=== PATIENT | female | born 1970 | race Caucasian/White ===

== ENCOUNTER 2017-04-19 08:06 | Emergency (ER) | payer MEDICAID, OTHER ==
[2017-04-19] MEDS: ONDANSETRON 4 MG INJ IV (08:28)
[2017-04-19] MEDS: SOD CHLORIDE 0.9% 1,000 ML IV (08:28)
[2017-04-19] MEDS: morphine 4 MG/ML VIAL IV (08:29)
[2017-04-19 08:35] LABS: ABNORMAL IP MESSAGE 1; HEMOGLOBIN 12.6 g/dl (12.0-16.0); MEAN CORPUSCULAR HEMOGLOBIN 28.6 pg (29.0-33.0); MEAN CORPUSCULAR HGB CONC 34.1 g/dl (32.0-37.0); MEAN CORPUSCULAR VOLUME 83.9 fl (82.0-101.0); MEAN PLATELET VOLUME 11.1 fl (7.4-10.4); PLATELET COUNT 287 10^3/UL (140-415); RED BLOOD COUNT 4.41 10^6/ul (4.20-5.40); RED CELL DISTRIBUTION WIDTH 13.3 % (11.5-14.5)
[2017-04-19 08:43] LABS: POSITIVE DIFF @See below
[2017-04-19 08:44] LABS: ADD MAN DIFF? YES
[2017-04-19 09:00] LABS: ADD UMIC YES; UR AMORPHOUS CRYSTAL FEW /HPF (NONE SEEN); UR ASCORBIC ACID NEGATIVE (NEGATIVE); UR BILIRUBIN (Dip) NEGATIVE (NEGATIVE); UR BLOOD (Dip) 2+ mg/dL (NEGATIVE); UR CLARITY SLIGHTLY CLOUDY (CLEAR); UR COLOR YELLOW (YELLOW); UR GLUCOSE (Dip) NEGATIVE (NEGATIVE); UR KETONES (Dip) NEGATIVE (NEGATIVE); UR LEUKOCYTE ESTERASE (Dip) NEGATIVE Leu/ul (NEGATIVE); UR NITRITE (Dip) NEGATIVE (NEGATIVE); UR RBC 0 /HPF (0-5); UR SPECIFIC GRAVITY (Dip) 1.016 (1.003-1.030); UR SQUAMOUS EPITHELIAL CELL MODERATE /HPF (FEW); UR TOTAL PROTEIN (Dip) 1+ mg/dl (NEGATIVE); UR UROBILINOGEN (Dip) 2+ mg/dL (NEGATIVE); UR WBC 2 /HPF (0-5)
[2017-04-19 09:07] LABS: ALANINE AMINOTRANSFERASE 28 IU/L (13-69); ALBUMIN 3.7 g/dl (3.3-4.9); ALKALINE PHOSPHATASE 86 IU/L (42-121); ANION GAP 17 (8-16); ASPARTATE AMINO TRANSFERASE 38 IU/L (15-46); BILIRUBIN,INDIRECT 0.3 mg/dl (0-1.1); BILIRUBIN,TOTAL 0.3 mg/dl (0.2-1.3); BLOOD UREA NITROGEN 37 mg/dl (7-20); CALCIUM 9.1 mg/dl (8.4-10.2); CARBON DIOXIDE 25 mmol/L (21-31); CHLORIDE 94 mmol/L (97-110); CREATININE 1.29 mg/dl (0.44-1.00); ETHANOL < 10.0 mg/dl; GLUCOSE 89 mg/dl (70-220); LIPASE 100 U/L (23-300); POTASSIUM 3.6 mmol/L (3.5-5.1); SODIUM 132 mmol/L (135-144); TOTAL PROTEIN 7.4 g/dl (6.1-8.1)
[2017-04-19 09:22] LABS: BARBITURATES Negative (NEGATIVE); BENZODIAZEPINES Negative (NEGATIVE); CANNABINOIDS Negative (NEGATIVE); COCAINE Negative (NEGATIVE); OPIATES Positive (NEGATIVE)
[2017-04-19 09:35] LABS: AMPHETAMINE/METHAMPHETAMINE POSITIVE (NEGATIVE)
[2017-04-19 11:25] LABS: WHITE BLOOD COUNT 8.7 10^3/ul (4.8-10.8)
[2017-04-19 11:37] LABS: BAND NEUTROPHILS #M 3.7 10^3/ul (0.0-0.6); BAND NEUTROPHILS % (M) 43 % (0-4); GIANT THROMBO% (M) 3 % (0-0); LYMPHOCYTES #M 0.4 10^3/ul (0.8-2.9); LYMPHOCYTES % (M) 5 % (15-51); MONOCYTE #M 0.1 10^3/ul (0.3-0.9); MONOCYTES % (M) 2 % (0-11); PLATELET ESTIMATE NORMAL; POIKILOCYTOSIS 2+ (0-0); POLYCHROMASIA 1+ (0-0); REACTIVE LYMPHOCYTES #M 0.1 10^3/ul (0.0-0.0); REACTIVE LYMPHOCYTES% (M) 2 % (0-0); SEG NEUT #M 4.5 10^3/ul (1.6-7.5); SEGMENTED NEUTROPHILS (M) % 48 % (39-77); SMUDGE%M 10 % (0-0)
== END 2017-04-19 11:20 | disposition home or self-care (01) ==
LOC: E/R 08:06
DX: K80.70 Calculus of gallbladder and bile duct without cholecystitis without obstruction (principal); N28.9 Disorder of kidney and ureter, unspecified; N20.0 Calculus of kidney; F11.10 Opioid abuse, uncomplicated; F15.10 Other stimulant abuse, uncomplicated; Z86.19 Personal history of other infectious and parasitic diseases
CPT/HCPCS: 36415; 76705; 80053; 80306; 80307; 81001; 83690; 85025; 96374; 96375; 99285-25